=== PATIENT | male | born 1995 | race Caucasian/White ===

== ENCOUNTER 2017-02-16 10:12 | Emergency (ER) | payer OTHER ==
[2017-02-16 10:29] VITALS: BP 122/64
--- NOTE | 2017-02-16 11:09 | ERNOTE ---
ENT HPI Date of Service: 02/16/17 Time Seen by Provider: 02/16/17 10:52 - Immun/Allergies/Home Medications Immunizations: IMMUNIZATION HX History of Influenza Vaccine No Hx Pneumococcal Vaccination No Allergies/Adverse Reactions: Allergies Allergy/AdvReac Type Severity Reaction Status Date / Time No Known Allergies Allergy Verified 02/16/17 10:29 Home Medications: HOME MEDICATIONS FLUoxetine HCL [Prozac] 20 mg PO DAILY 07/05/13 [Last Taken 01/22/14] Aripiprazole [Abilify] 7.5 mg PO DAILY 05/08/15 [Last Taken Unknown] LORazepam [Ativan] 0.5 mg PO TID PRN 05/08/15 [Last Taken Unknown] Amox Tr/Potassium Clavulanate [Augmentin 875-125 Tablet] 875 mg PO Q12H #20 tab 02/16/17 [Last Taken Unknown] Ciprofloxacin HCl/Dexameth [Ciprodex Otic Suspension] 1 drop OT QID #1 bottle [Last Taken Unknown] - History of Present Illness Narrative: Pt. comes in with c/o R ear pain and drainage fro 2 days. Mom states that pt. has had low grade temperature, and purulent drainage that started after he was swimming. Mom states that pt. has a developmental delay that inhibits his ability to tell others when he is feeling pain so often objective signs are the first sign of illness. Mom denies any NVD, recent illness, SOB, CP, prehospital treatment, alleviating factors, or aggravating factors. Review of Systems - Review of Systems Constitutional: Present: fever. Absent: recent illness, chills, weakness, fatigue, malaise EYE: Present: no symptoms reported ENT: Present: ear pain, ear discharge - purulent Respiratory: Present: no symptoms reported. Absent: shortness of breath, cough , wheezing Cardiology: Present: no symptoms reported. Absent: chest pain, palpitations, edema Gastrointestinal/Abdominal: Present: no symptoms reported. Absent: nausea, vomiting, diarrhea Genitourinary: Present: no symptoms reported Musculoskeletal: Present: no symptoms reported. Absent: back pain, joint pain Skin: Present: no symptoms reported. Absent: rash, change in hair/nails Neurological: Present: no symptoms reported. Absent: headache, dizziness/light- headedness, numbness, tingling All Other Systems: All systems neg except as marked - Patient's Past Medical History Patient History - Medical: Other - DD Patient History - Cardiac/Respiratory: No pertinent hx Patient History - Cancer: No Hx of Cancer Patient History - Surgical Procedures: Appendectomy, Other Patient History - Other: None - Social History Living Situations: home Abuse History: No History of abuse Psych History: No pertinent hx - Immunizations Hx Pneumococcal Vaccination: No History of Influenza Vaccine: No Physical Exam - Physical Exam General Appearance: Present: wd/wn, alert, no apparent distress Eye Exam: Normal inspection: bilateral, PERRL: bilateral, EOMI: bilateral Ears, Nose, Throat: Present: abnormal TM (R) - redness with TM rupture and purulent drainage, abnormal TM (L) - redness with TM rupture and purlulent drainage, normal pharynx Neck: Present: normal inspection, nontender. Absent: lymphadenopathy (R), lymphadenopathy (L) Respiratory: Present: no respiratory distress, normal breath sounds, no accessory muscle use, chest nontender, lungs clear Cardiovascular/Chest: Present: regular rate, rhythm, no murmur, normal peripheral pulses Gastrointestinal/Abdominal: Present: normal bowel sounds, nontender, nondistended, soft, no organomegaly Back Exam: Present: normal inspection Extremity Exam: Present: normal inspection, non-tender, normal range of motion, no edema Neurological Exam: Present: alert, normal mood/affect, no motor/sensory deficits Skin Exam: Present: normal color, warm/dry. Absent: pallor, skin rash ED Progress - Vital Signs Patient's Vital Signs:: I have reviewed the patient's vital signs. Vital Signs: Vital Signs 02/16/17 10:25 Temperature 37.4 C Pulse Rate 107 H Respiratory 16 Rate Blood Pressure 122/64 O2 Sat by Pulse 99 Oximetry - Progress/Reassessment Chief Complaint: Earache Departure Clinical Impression: Otitis media Qualifiers: Otitis media type: suppurative Chronicity: acute Laterality: bilateral Recurrence: not specified as recurrent Spontaneous tympanic membrane rupture: with spontaneous rupture Qualified Code(s): H66.013 - Acute suppurative otitis media with spontaneous rupture of ear drum, bilateral - Departure Disposition: Home self-care Condition: Good Instructions: Eardrum Perforation, [id number], Ear Drainage, [id number], Otitis Media With Effusion Additional Instructions: Please use cotton balls after each time you apply ear drops. Please follow up with primary provier in 2-3 days. Please use ear plugs when swimming no swimming for 3-5 days. Referrals: Carrol Holder DO [Primary Care Provider] - Prescriptions: Amox Tr/Potassium Clavulanate [Augmentin 875-125 Tablet] 875 mg PO Q12H #20 tab Ciprofloxacin HCl/Dexameth [Ciprodex Otic Suspension] 1 drop OT QID #1 bottle
--- OUTSIDE RECORDS SUMMARY | 2017-02-16 11:13 | XMS REPORT | Continuity of Care Document ---
:1995 Demographics Address [address] [place] [address] Home Phone [phone] Preferred Language Unknown Marital Status Unknown Yarsanism Affiliation Unknown Race Unknown Ethnic Group Unknown Author Organization [place] [place] [address] Care Team Providers Name Role Phone Unavailable Primary Care Provider Unavailable Source Comments This disclosure is being made pursuant to the [employer] program and maynot contain all information available regarding this patient.[facility] Active Allergies and Adverse Reactions Not on File Current Medications Be aware that medications may not be up to date as of this document. Alwaysverify current medications with the patient. Not on file Active Problems Not on file Social History Tobacco Use Types Packs/Day Years Used Date Never Assessed Plan of Care Health Maintenance Due Date Last Done Comments HPV Vaccine ([id number]) (1 of 3 - Male 3 Dose Series) 01/02/2007 Retired-Tetanus Vaccine Adult 01/02/2015 Retired-INFLUENZA VACCINE 04/15/2015 Results from Last 3 Months Not on file
== END 2017-02-16 11:10 | disposition home or self-care (01) ==
LOC: ER 10:12
DX: H66.013 Acute suppurative otitis media with spontaneous rupture of ear drum, bilateral (principal)